=== PATIENT | female | born 1950 | race Hispanic/Latino ===

== ENCOUNTER 2016-07-14 12:38 | Emergency (ER) | payer BC ==
[2016-07-14 12:39] VITALS: BMI 30.2
[2016-07-14 12:46] VITALS: PULSE 59; RESP 18; TEMP 98; O2SAT 99
[2016-07-14 13:17] VITALS: BP 186/106
--- NOTE | 2016-07-14 13:38 | ED PDOC ---
HPI: Hypertension/Hypotension Time Seen by Provider: 07/14/16 13:14 Chief Complaint (Nursing): High Blood Pressure History Per: Patient (sent from same day surgery because of elevated BP. Patient reports not having taken her usual medications this morning as she should have. She forgot. She denies CP, SOB, BOYCE, dizziness, N, V, blurreed vision.) Past Medical History Reviewed: Historical Data, Nursing Documentation, Vital Signs Vital Signs: Last Vital Signs Temp 98 F 07/14/16 12:43 Pulse 59 L 07/14/16 12:43 Resp 18 07/14/16 12:43 BP 186/106 H 07/14/16 13:15 Pulse Ox 99 07/14/16 12:43 - Medical History PMH: HTN - Family History Family History: States: No Known Family Hx - Living Arrangements Living Arrangements: With Family - Allergies Allergies/Adverse Reactions: Allergies Allergy/AdvReac Type Severity Reaction Status Date / Time aloe vera [From Benzo-Creme] Allergy RASH Verified 07/14/16 11:35 benzocaine [From Benzo-Creme] Allergy RASH Verified 07/14/16 11:35 ergocalciferol (vitamin D2) Allergy RASH Verified 07/14/16 11:35 [From Benzo-Creme] vitamin A [From Benzo-Creme] Allergy RASH Verified 07/14/16 11:35 vitamin E (d-alpha Allergy RASH Verified 07/14/16 11:35 tocopherol) [From Benzo-Creme] Review of Systems ROS Statement: Except As Marked, All Systems Reviewed And Found Negative Physical Exam - Reviewed Nursing Documentation Reviewed: Yes Vital Signs Reviewed: Yes - Physical Exam Appears: Positive for: Well, Non-toxic, No Acute Distress Head Exam: Positive for: ATRAUMATIC, NORMAL INSPECTION, NORMOCEPHALIC Skin: Positive for: Normal Color, Warm, DRY Eye Exam: Positive for: EOMI, Normal appearance, PERRL ENT: Positive for: Normal ENT Inspection Neck: Positive for: Normal, Painless ROM Cardiovascular/Chest: Positive for: Regular Rate, Rhythm Respiratory: Positive for: CNT, Normal Breath Sounds Gastrointestinal/Abdominal: Positive for: Normal Exam, Bowel Sounds, Soft Back: Positive for: Normal Inspection Extremity: Positive for: Normal ROM Neurologic/Psych: Positive for: Alert, Oriented - ECG O2 Sat by Pulse Oximetry: 99 Disposition - Clinical Impression Clinical Impression: Hypertension, Abnormal blood pressure - Patient ED Disposition Is Patient to be Admitted: No Doctor Will See Patient In The: Office Counseled Patient/Family Regarding: Diagnosis, Need For Followup - Disposition Disposition: Routine/Home Disposition Time: 13:38 Condition: STABLE Additional Instructions: Please resume your blood pressure medications as soon as possible and return to the ER if you have symptoms that are related to high blood pressure as explained Instructions: Hypertension (ED) Forms: [facility] ED School/Work Excuse - POA Present On Arrival: None
== END 2016-07-14 13:39 | disposition home or self-care (01) ==
LOC: H.ER 12:38
DX: I10 Essential (primary) hypertension (principal)